=== PATIENT | male | born 1950 | race Caucasian/White ===

== ENCOUNTER 2022-04-15 17:08 | Inpatient (IN) | payer MEDICARE ==
[2022-04-15] MEDS ORDERED: Ondansetron PF 4 MG/2 ML Vial ONE (17:50)
[2022-04-15 18:21] LABS: #Lymphocytes 0.5 thou/uL (1.20-3.40); #Monocytes 0.4 thou/uL (0.11-0.59); #Neutrophils 5.3 thou/uL (1.40-6.50); %Eosinophils 0.1 % (0.0-10.0); %Lymphocytes 7.3 % (21.0-51.0); %Monocytes 6.7 % (0.0-10.0); %Neutrophils 85.9 % (42.0-75.0); Hemoglobin 15.7 g/dL (14.0-18.0); Mean Corpuscular HGB CONC 34.9 g/dL (32.0-36.0); Mean Corpuscular Hemoglobin 31.6 pg (27.0-31.0); Mean Corpuscular Volume 90.7 fl (78.0-98.0); Platelet Count 174 10x3/uL (130-400); RBC Distribution Width 12.4 % (11.5-14.5); Red Blood Cell (RBC) Count 4.97 mill/uL (4.70-6.10); White Blood Cell (WBC) Count 6.2 10x3/uL (4.8-10.8)
[2022-04-15 18:44] LABS: ALT (SGPT) 26 U/L (8-55); AST (SGOT) 44 U/L (5-34); Albumin 3.9 g/dL (3.4-4.8); Alkaline Phosphatase 59 U/L (40-110); Anion Gap 17 mmol/L (10-20); BUN (Urea Nitrogen) 19 mg/dL (8.4-25.7); Bilirubin, Total 1.4 mg/dL (0.2-1.2); Calc. Creatinine Clearance 0 mL/min (70-130); Calcium 8.7 mg/dL (7.8-10.44); Carbon Dioxide 21 mmol/L (23-31); Chloride 103 mmol/L (98-107); Estimated GFR 62; Globulin 2.9 g/dL (2.4-3.5); Glucose 115 mg/dL (83-110); Potassium 3.5 mmol/L (3.5-5.1); Protein, Total 6.8 g/dL (5.8-8.1); Sodium 137 mmol/L (136-145)
[2022-04-15] MEDS ORDERED: cefTRIAXone\\ROCEPHIN 2 GM VIAL ONE (19:23)
[2022-04-15] MEDS ORDERED: Azithromycin 500 MG VIAL ONE (20:35)
[2022-04-15] MEDS ORDERED: Sodium Chloride 0.9% 1,000 ML IV SCH (20:45)
[2022-04-15] MEDS ORDERED: Lactated Ringer's 1,000 ML IV SCH (21:00)
[2022-04-15 21:20] LABS: Lactic Acid 1.5 mmol/L (0.5-2.2)
[2022-04-15 21:45] LABS: SARS-CoV-2 NAA Rapid Test DETECTED (NotDetected)
[2022-04-15 22:16] VITALS: BMI 30.6
[2022-04-16] MEDS: Acetaminophen 325 MG TAB PO PRN ×3 (00:03→20:38)
[2022-04-16] MEDS: Ibuprofen 200 MG TAB PO PRN ×2 (06:13→23:34)
[2022-04-16 07:05] LABS: #Lymphocytes 0.5 thou/uL (1.20-3.40); #Monocytes 0.3 thou/uL (0.11-0.59); #Neutrophils 3.8 thou/uL (1.40-6.50); %Basophils 0.1 % (0.0-1.0); %Eosinophils 0.1 % (0.0-10.0); %Lymphocytes 11.1 % (21.0-51.0); %Neutrophils 82.7 % (42.0-75.0); Hemoglobin 13.4 g/dL (14.0-18.0); Mean Corpuscular HGB CONC 33.9 g/dL (32.0-36.0); Mean Corpuscular Hemoglobin 31.3 pg (27.0-31.0); Mean Corpuscular Volume 92.4 fl (78.0-98.0); Mean Platelet Volume 7.7 fL (7.4-10.4); Platelet Count 183 10x3/uL (130-400); RBC Distribution Width 12.4 % (11.5-14.5); White Blood Cell (WBC) Count 4.6 10x3/uL (4.8-10.8)
[2022-04-16 07:30] LABS: ALT (SGPT) 20 U/L (8-55); AST (SGOT) 38 U/L (5-34); Albumin 3.2 g/dL (3.4-4.8); Alkaline Phosphatase 47 U/L (40-110); Anion Gap 13 mmol/L (10-20); BUN (Urea Nitrogen) 16 mg/dL (8.4-25.7); Bilirubin, Total 0.9 mg/dL (0.2-1.2); Calc. Creatinine Clearance 88 mL/min (70-130); Calcium 7.7 mg/dL (7.8-10.44); Carbon Dioxide 21 mmol/L (23-31); Chloride 107 mmol/L (98-107); Estimated GFR 75; Globulin 2.4 g/dL (2.4-3.5); Glucose 103 mg/dL (83-110); Potassium 3.7 mmol/L (3.5-5.1); Protein, Total 5.6 g/dL (5.8-8.1); Sodium 137 mmol/L (136-145)
[2022-04-16] MEDS ORDERED: Lactated Ringer's 1,000 ML IV SCH (08:00)
[2022-04-16] MEDS ORDERED: Dexamethasone 1 MG TAB PO SCH (10:30)
[2022-04-16] MEDS ORDERED: Melatonin 3 MG TAB PO PRN (19:53)
[2022-04-16] MEDS: Famotidine 20 MG TAB PO SCH (20:39)
[2022-04-16] MEDS: guaiFENesin ER 600 MG TAB PO PRN (20:44)
[2022-04-16] MEDS ORDERED: Famotidine 20 MG TAB PO SCH (21:00)
[2022-04-17] MEDS: Benzonatate 100 MG CAP PO PRN ×3 (01:07→22:02)
[2022-04-17 07:54] LABS: #Lymphocytes 0.4 thou/uL (1.20-3.40); #Monocytes 0.2 thou/uL (0.11-0.59); #Neutrophils 5.7 thou/uL (1.40-6.50); %Monocytes 3.5 % (0.0-10.0); %Neutrophils 89.5 % (42.0-75.0); Mean Corpuscular HGB CONC 34.2 g/dL (32.0-36.0); Mean Corpuscular Hemoglobin 31.6 pg (27.0-31.0); Mean Corpuscular Volume 92.4 fl (78.0-98.0); Mean Platelet Volume 7.5 fL (7.4-10.4); Platelet Count 204 10x3/uL (130-400); RBC Distribution Width 12.6 % (11.5-14.5); Red Blood Cell (RBC) Count 4.11 mill/uL (4.70-6.10); White Blood Cell (WBC) Count 6.4 10x3/uL (4.8-10.8)
[2022-04-17 08:13] LABS: Anion Gap 12 mmol/L (10-20); BUN (Urea Nitrogen) 18 mg/dL (8.4-25.7); Calc. Creatinine Clearance 102 mL/min (70-130); Calcium 8.3 mg/dL (7.8-10.44); Carbon Dioxide 23 mmol/L (23-31); Chloride 106 mmol/L (98-107); Estimated GFR 90; Glucose 107 mg/dL (83-110); Potassium 3.7 mmol/L (3.5-5.1); Sodium 137 mmol/L (136-145)
[2022-04-17] MEDS: Dexamethasone 4 MG TAB PO SCH (09:45)
[2022-04-17] MEDS: Famotidine 20 MG TAB PO SCH ×2 (09:45→22:03)
[2022-04-17] MEDS: guaiFENesin ER 600 MG TAB PO PRN (09:48)
[2022-04-17] MEDS: Ibuprofen 200 MG TAB PO PRN (11:51)
[2022-04-17] MEDS ORDERED: Ondansetron ORAL SOLN. 4 MG/5 ML UDCUP PO SCH (14:00)
[2022-04-18] MEDS: Benzonatate 100 MG CAP PO PRN ×2 (03:48→11:00)
[2022-04-18] MEDS: Dexamethasone 4 MG TAB PO SCH (08:39)
[2022-04-18] MEDS: Famotidine 20 MG TAB PO SCH (08:40)
[2022-04-18 09:18] LABS: Anion Gap 14 mmol/L (10-20); BUN (Urea Nitrogen) 18 mg/dL (8.4-25.7); Calc. Creatinine Clearance 105 mL/min (70-130); Calcium 8.6 mg/dL (7.8-10.44); Carbon Dioxide 21 mmol/L (23-31); Chloride 106 mmol/L (98-107); Estimated GFR 91; Glucose 105 mg/dL (83-110); Potassium 3.7 mmol/L (3.5-5.1); Sodium 137 mmol/L (136-145)
[2022-04-18 09:41] LABS: Band 18 % (5-11); Hemoglobin 14.3 g/dL (14.0-18.0); Lymphocytes 3 % (21-51); MDiff Complete? YES; Mean Corpuscular Hemoglobin 32.3 pg (27.0-31.0); Mean Corpuscular Volume 92.3 fl (78.0-98.0); Mean Platelet Volume 7.9 fL (7.4-10.4); Monocytes 3 % (0-10); Neutrophil 75 % (42-75); Platelet Count 258 10x3/uL (130-400); Platelet Morphology Comment Appears Adequate; RBC Distribution Width 12.8 % (11.5-14.5); RBC Morphology Normal; Reactive Lymphocytes 1 % (0-10); Red Blood Cell (RBC) Count 4.43 mill/uL (4.70-6.10); White Blood Cell (WBC) Count 7.7 10x3/uL (4.8-10.8)
[2022-04-18 11:05] VITALS: BP 122/73; TEMP 98.4
== END 2022-04-18 14:43 | disposition home or self-care (01) | DRG 177 ==
LOC: ERS 17:08 → T4-A 19:06 → UNDOADMIN 19:06 → T4-A 04-16 15:47
PROVIDERS: ADMIT Internal Medicine; ATTEND Student in an Organized Health Care Education/Training Program
PROC: 8E0ZXY6 Isolation (ICD-10-PCS; principal; 2022-04-16)
DX: U07.1 COVID-19 (principal); J12.82 Pneumonia due to coronavirus disease 2019; J96.01 Acute respiratory failure with hypoxia; E87.20 Acidosis, unspecified; E86.0 Dehydration; Z91.040 Latex allergy status
CPT/HCPCS: 36415; 71045; 80048; 80053; 83605; 84145; 85025; 87040; 96361; 96365; 96375; J0456; J0696; J1650; J2405; J7120; J8540; U0002